=== PATIENT | male | born 1970 | race Caucasian/White ===

== ENCOUNTER 2017-11-14 22:00 | Emergency (ER) | payer OTHER ==
[~2017-11-14] VITALS: Ht 175.3 cm; Wt 190.5 kg
--- NOTE | 2017-11-14 23:34 | PHYS DOC ---
Past Medical History Past Medical History: Asthma, Bronchitis, COPD, Diabetes-Type II, High Cholesterol, Hypertension Additional Past Medical Histor: CHRONIC BACK PAIN Past Surgical History: No Surgical History Alcohol Use: None Drug Use: None Adult General Chief Complaint Chief Complaint: ANXIETY/PANIC ATTACK HPI HPI 47-year-old male presents to ER via EMS with complaints of anxiety and feeling he is going through withdrawal as he hasn't had his oxycodone since yesterday. Patient reports he was seen at today and was given a medication for his nerves but uncertain what medication he received. Patient reports he ran out of his oxycodone yesterday which she takes for chronic back pain. Pt reports he has been on oxycodone for several years. He reports he has a Rx at home but can' t get Rx until 11/17. Pt denies any CP/SOA. He reports he has had intermittent nausea denying V/D. Pt denies any SI- reporting he just feels anxious denying any uncontrollable behavior. Review of Systems Review of Systems Constitutional: Denies fever or chills [] Eyes: Denies change in visual acuity, redness, or eye pain [] HENT: Denies nasal congestion or sore throat [] Respiratory: Denies cough or shortness of breath [] Cardiovascular: No additional information not addressed in HPI [] GI: Denies abdominal pain, nausea, vomiting, bloody stools or diarrhea [] : Denies dysuria or hematuria [] Musculoskeletal: Denies back pain or joint pain [] Integument: Denies rash or skin lesions [] Neurologic: Denies headache, focal weakness or sensory changes [] Endocrine: Denies polyuria or polydipsia [] All other systems were reviewed and found to be within normal limits, except as documented in this note. Current Medications Current Medications Current Medications Medications (Trade) Dose Ordered Sig/Nora Start Time Stop Time Status Last Admin Dose Admin Clonidine HCl (Catapres) 0.2 mg 1X ONCE 11/14/17 23:45 11/14/17 23:46 DC 11/14/17 00:15 0.2 MG Diphenhydramine HCl (Benadryl) 25 mg 1X ONCE 11/14/17 23:45 11/14/17 23:46 DC 11/14/17 00:15 25 MG Lorazepam (Ativan) 1 mg 1X ONCE 11/14/17 23:45 11/14/17 23:46 DC 11/14/17 00:15 1 MG Allergies Allergies Allergies Coded Allergies Type Severity Reaction Last Updated Verified No Known Drug Allergies 10/03/14 No Physical Exam Physical Exam Constitutional: Well developed, well nourished, no acute distress, non-toxic appearance. [] HENT: Normocephalic, atraumatic, bilateral external ears normal, oropharynx moist, no oral exudates, nose normal. [] Eyes: PERRLA, EOMI, conjunctiva normal, no discharge. [] Neck: Normal range of motion, no tenderness, supple, no stridor. [] Cardiovascular:Heart rate regular rhythm, no murmur [] Lungs & Thorax: Bilateral breath sounds clear to auscultation [] Abdomen: Bowel sounds normal, soft, no tenderness, no masses, no pulsatile masses. [] Skin: Warm, dry, no erythema, no rash. [] Back: No tenderness, no CVA tenderness. [] Extremities: No tenderness, no cyanosis, no clubbing, ROM intact, no edema. [] Neurologic: Alert and oriented X 3, normal motor function, normal sensory function, no focal deficits noted. [] Psychologic: Affect normal, judgement normal, mood normal. [] Current Patient Data Vital Signs Vital Signs Date Time Temp Pulse Resp B/P (MAP) Pulse Ox O2 Delivery O2 Flow Rate FiO2 11/14/17 23:00 99.0 88 22 158/96 (116) 94 Room Air 99.0 EKG EKG [] Radiology/Procedures Radiology/Procedures [] Course & Med Decision Making Course & Med Decision Making 0038: Patient reports following treatments received while in the ER he is feeling less anxious. In-depth conversation had with patient regarding chronic pain and overuse of narcotic indication. Patient was advised he needs further follow-up with pain management for additional treatment. Pt has had no uncontrollable behavior and is in no visible distress at this time. Discussed OTC benedryl to use as directed on container for feelings of withdrawals and will provide Rx for Clonidine 0.2mg BID for 3 days. Discharge instructions discussed along with education on s&s to return to ER for. Darian Disclaimer Darian Disclaimer This electronic medical record was generated, in whole or in part, using a voice recognition dictation system. Departure Departure Impression: Primary Impression: Anxiety Disposition: 01 HOME, SELF-CARE Condition: STABLE Referrals: JOSÉ LUIS MA MD (PCP) Patient Instructions: Anxiety and Panic Attacks, [id number] Additional Instructions: You should follow-up with your primary doctor and pain management doctor to further discuss chronic pain medications and treatments. You can take over the counter Benedryl as directed on container for anxiety/ restlessness. Get plenty of rest and eat well balanced meal with plenty of water intake. Scripts Clonidine Hcl (CLONIDINE HCL) 0.2 Mg Tablet 1 TAB PO BID, #6 TAB 0 Refills Prov: CALLIE HENLEY APRN 11/15/17 CALLIE HENLEY APRN Nov 14, 2017 23:34
[2017-11-14] MEDS ORDERED: cloNIDine HCL 0.1 MG TABLET PO ONE (23:45)
[2017-11-14] MEDS ORDERED: diphenhydrAMINE HCL 25 MG CAPSULE PO ONE (23:45)
[2017-11-15 00:09] VITALS: BP 169/92
[2017-11-15] MEDS ORDERED: CLON0.2T PO (00:44)
== END 2017-11-15 01:16 | disposition home or self-care (01) ==
LOC: ER 22:00
DX: F41.9 Anxiety disorder, unspecified (principal); G89.29 Other chronic pain; M54.9 Dorsalgia, unspecified; R11.0 Nausea; J44.9 Chronic obstructive pulmonary disease, unspecified; E11.9 Type 2 diabetes mellitus without complications; E78.00 Pure hypercholesterolemia, unspecified; I10 Essential (primary) hypertension
CPT/HCPCS: 96372; 99284; J2060; Q0163